=== PATIENT | female | born 1995 | race Caucasian/White ===

== ENCOUNTER 2016-10-15 17:59 | Emergency (ER) | payer OTHER ==
[2016-10-15 18:53] LABS: URINE BILIRUBIN NEGATIVE (NEGATIVE); URINE BLOOD TRACE (NEGATIVE); URINE GLUCOSE (UA) NEGATIVE (NEGATIVE); URINE LEUKOCYTE ESTERASE TRACE (NEGATIVE); URINE NITRITE NEGATIVE (NEGATIVE); URINE PROTEIN NEGATIVE (NEGATIVE); URINE UROBILINOGEN NORMAL (0-1 mg/dl)
[2016-10-15 18:56] LABS: URINE APPEARANCE CLEAR; URINE COLOR YELLOW
[2016-10-15 19:06] LABS: HCG,QUALITATIVE URINE NEGATIVE
[2016-10-15 19:14] LABS: URINE BACTERIA RARE; URINE EPITHELIAL CELLS 0-2 /hpf; URINE RBC 0-2 /hpf
[2016-10-17 14:47] LABS: CHLAMYDIA BD Negative (Negative); N.GONORRHOEAE BD Negative (Negative); SOURCE Urine (())
== END 2016-10-15 19:30 | disposition home or self-care (01) ==
LOC: ED 17:59
DX: R30.0 Dysuria (principal)